=== PATIENT | male | born 1965 | race African-American/Black ===

== ENCOUNTER 2017-01-29 23:59 | Emergency (ER) | payer BC, OTHER ==
[2017-01-30 00:04] VITALS: BP 129/74
== END 2017-01-30 02:05 | disposition home or self-care (01) ==
LOC: ED 23:59
DX: H10.11 Acute atopic conjunctivitis, right eye (principal)

== ENCOUNTER 2017-07-29 16:49 | Emergency (ER) | payer BC, OTHER ==
[~2017-07-29] VITALS: Ht 185.4 cm; Wt 108.0 kg
[2017-07-29 16:55] VITALS: Ht 185.4 cm; Wt 108.0 kg
[2017-07-29 18:11] LABS: BASOPHIL % 0.3 % (0-2); PLATELET COUNT 190 x10^3mcL (130-400); RED CELL DISTRIBUTION WIDTH 14.3 % (11.5-14.5)
[2017-07-29 18:16] LABS: CALCIUM 8.8 mg/dL (8.5-10.1); CARBON DIOXIDE 29.9 mmol/L (21-32); CHLORIDE SERUM 103 mmol/L (98-107); GFR1 > 60 mL/min; GLUCOSE SERUM 97 mg/dL (74-106); SODIUM SERUM 138 mmol/L (136-145)
[2017-07-29 18:21] LABS: ALKALINE PHOSPHATASE 72 U/L (46-116); ALT/SGPT 50 U/L (16-63); AST/SGOT 26 U/L (15-37); BILIRUBIN TOTAL 0.5 mg/dL (0.20-1.00); TOTAL PROTEIN, SERUM 7.3 g/dL (6.4-8.2)
[2017-07-29 19:10] LABS: T3 TOTAL 0.99 ng/mL
[2017-07-29 19:13] LABS: FREE T4 1.04 ng/dL (0.76-1.46); T4(THYROXINE) 8.5 ug/dL (4.7-13.3)
[2017-07-29 19:29] LABS: UA SPECIFIC GRAVITY 1.025 (1.005-1.035); microscopic required? YES; urine erythrocyte NEGATIVE (NEGATIVE)
[2017-07-29 19:37] LABS: AMPHETAMINE QUAL UR NONE DETECTED (NEG <=1000)
[2017-07-29 22:41] VITALS: BP 131/87
== END 2017-07-29 22:41 | disposition home or self-care (01) ==
LOC: ED 16:49
PROVIDERS: Emergency Medicine
DX: N41.0 Acute prostatitis (principal); R07.89 Other chest pain; R10.9 Unspecified abdominal pain; G89.29 Other chronic pain
CPT/HCPCS: 36415; 83880; 84439; Q0092

== ENCOUNTER 2018-09-26 07:20 | Emergency (ER) | payer BC, OTHER ==
[~2018-09-26] VITALS: Ht 185.4 cm; Wt 109.8 kg
[2018-09-26 07:29] VITALS: Ht 185.4 cm; Wt 109.8 kg
[2018-09-26 07:57] LABS: BASOPHIL % 0.3 % (0-2); PLATELET COUNT 205 x10^3mcL (130-400); RED CELL DISTRIBUTION WIDTH 13.2 % (11.5-14.5)
[2018-09-26 08:08] LABS: CALCIUM 9.1 mg/dL (8.5-10.1); CARBON DIOXIDE 23.7 mmol/L (21-32); CHLORIDE SERUM 106 mmol/L (98-107); CREATININE SERUM 0.9 mg/dL (0.7-1.3); GFR1 > 60 mL/min; GLUCOSE SERUM 130 mg/dL (74-106); SODIUM SERUM 141 mmol/L (136-145)
[2018-09-26 08:13] LABS: ALBUMIN 3.9 g/dL (3.4-5.0); ALKALINE PHOSPHATASE 69 U/L (46-116); ALT/SGPT 51 U/L (16-63); AST/SGOT 21 U/L (15-37); BILIRUBIN TOTAL 0.56 mg/dL (0.20-1.00); LIPASE 151 IU/L (73-393); TOTAL PROTEIN, SERUM 7.2 g/dL (6.4-8.2)
[2018-09-26 10:02] VITALS: BP 138/74
== END 2018-09-26 10:02 | disposition home or self-care (01) ==
LOC: ED 07:20
PROVIDERS: Emergency Medicine
DX: R10.11 Right upper quadrant pain (principal); R06.02 Shortness of breath; Z98.890 Other specified postprocedural states; R11.0 Nausea
CPT/HCPCS: J1885; J2405; J7030

== ENCOUNTER 2018-12-11 15:25 | Emergency (ER) | payer BC, OTHER ==
[~2018-12-11] VITALS: Ht 185.4 cm; Wt 103.9 kg
[2018-12-11 15:41] VITALS: Ht 185.4 cm; Wt 103.9 kg
[2018-12-11 18:19] VITALS: BP 122/68
== END 2018-12-11 18:19 | disposition home or self-care (01) ==
LOC: ED 15:25
DX: S16.1XXA Strain of muscle, fascia and tendon at neck level, initial encounter (principal); S39.012A Strain of muscle, fascia and tendon of lower back, initial encounter; V49.9XXA Car occupant (driver) (passenger) injured in unspecified traffic accident, initial encounter; Y93.89 Activity, other specified; Y92.89 Other specified places as the place of occurrence of the external cause; Y99.8 Other external cause status
CPT/HCPCS: J1885